=== PATIENT | male | born 1955 | race Caucasian/White ===

== ENCOUNTER 2023-08-08 18:24 | Inpatient (IN) | payer OTHER ==
--- OUTSIDE RECORDS SUMMARY | 2023-08-08 18:28 | XMS REPORT | Continuity of Care Document ---
:1955 Author Organization [facility] t Address [address] [facility] [address] [place] [address] Care Team Providers Name Role Phone Rubens Escobar Primary Care Physician NILESH NELSON Attending Clinician Unavailable MILLIE GREENFIELD Attending Clinician Unavailable Payers Payer Name Policy Type Policy Number Effective Date Expiration Date S nahomi [facility] MEDIC[facility] [id number] 2021 ADVANTAGE 00:00:00 Problems Condition Condition Condition Status Onset Resolution Last Treating Co mments Source Name Details Category Date Date Treatment Clinician Date 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 Social History Social Habit Start Date Stop Date Quantity Comments Source Exposure to SARS-CoV-2 Not sure [facility] (event) Sex Assigned At [birth year] [facility] 00:00:00 00:00:00 Smoking Status Start Date Stop Date Source Tobacco smoking consumption unknown [facility] Medications Ordered Filled Start Stop Current Ordering Indication Dosage Frequency Signature Comments Components Source Medication Medication Date Date Medication? Clinician (SIG) Name Name ketoconazol Yes [id number] Apply to [place] e (NIZOral) 8-19 affected Heal th 2 % cream 00:00: area 2x 00 daily as needed for rash hydrocortis Yes [id number] Q.5D Apply [place] one 2.5 % 8-19 topically Healt h cream 00:00: 2 (two) 00 times a day if needed (Rash). hydrocortis 2020-10- No [id number] Q.5D Apply [place] one 2.5 % 12-02 topically Heal th cream 00:00: 00:00 2 (two) 00 :00 times a day if needed (Rash). ketoconazol 2020-10- No [id number] Apply to [place] e (NIZOral) 12-02 affected Hea lth 2 % cream 00:00: 00:00 area 2x 00 :00 daily for 10 days triamcinolo Yes [id number] Apply on [place] ne 5-12 affected Health (Kenalog) 00:00: area twice 0.1 % 00 a day. ointment Avoid face, groin and axilla. triamcinolo Yes [id number] Apply on [place] ne 5-12 affected Health (Kenalog) 00:00: area twice 0.1 % 00 a day. ointment Avoid face, groin and axilla. Vital Signs Vital Name Observation Time Observation Value Comments Source Systolic blood 2022-08-06 18:28:00 107 mm[Hg] [facility] pressure Diastolic blood 2022-08-06 18:28:00 55 mm[Hg] [facility] pressure Heart rate 2022-08-06 18:28:00 65 /min [facility] Body temperature 2022-08-06 18:28:00 36.44 [place] [facility] Respiratory rate 2022-08-06 18:28:00 16 /min [facility] Body height 2022-08-06 18:28:00 182.9 cm [facility] Body weight 2022-08-06 18:28:00 87.998 kg [facility] BMI 2022-08-06 18:28:00 26.31 kg/m2 [facility] Oxygen saturation in 2022-08-06 18:28:00 97 /min [facility] Arterial blood by Pulse oximetry Procedures Procedure Date / Time Performing Clinician Source Performed HC COMPLETE BLD COUNT 2022-04-24 14:05:00 Michael Crespo [facility]/AUTO DIFF Yonatan IONIZED CALCIUM 2022-04-24 14:05:00 [facility] COMPREHENSIVE METABOLIC 2022-04-24 14:05:00 [facility] PANEL Yonatan ESTIMATED GFR 2022-04-24 14:05:[facility] Yonatan HC COMPLETE BLD COUNT 2021-09-19 15:00:00 [facility] W/AUTO DIFF BASIC METABOLIC PANEL 2021-09-19 15:00:00 [facility] ESTIMATED GFR 2021-09-19 15:00:00 [facility] spital Plan of Care Planned Activity Planned Date Details Comments Source Future Scheduled 2022-08-25 Hepatitis C screening [facility] Test 14:10:34 (procedure) [code = 822956443] Future Scheduled 2022-08-25 COLONOSCOPY SCREENING [facility] Test 14:10:34 [code = COLONOSCOPY SCREENING] Future Scheduled 2022-08-25 SHINGLES VACCINES (1 Met [facility] Test 14:10:34 of 2) [code = SHINGLES VACCINES (1 of 2)] Future Scheduled 2022-08-25 65+ PNEUMOCOCCAL [facility] Test 14:10:34 VACCINE (1 - PCV) [code = 65+ PNEUMOCOCCAL VACCINE (1 - PCV)] Future Scheduled 2022-08-25 COVID-19 VACCINE (4 - [facility] Test 14:10:34 Booster for Pfizer series) [code = COVID-19 VACCINE (4 - Booster for Pfizer series)] Future Scheduled 2022-08-25 INFLUENZA VACCINE [facility] Test 14:10:34 [code = INFLUENZA VACCINE] Future Scheduled 2022-08-25 HEPATITIS B VACCINES [facility] Test 14:10:34 (1 of 3 - 3-dose series) [code = HEPATITIS B VACCINES (1 of 3 - 3-dose series)] Encounters Start End Encounter Admission Attending Care Care Encounter Source Date/Time Date/Time Type Type Clinicians Facility Department ID 2023-07-16 2023-07-16 [facility] [id number] [place] 00:00:00 00:00:00 NILESH 814 Frdei bañuelos 2023-06-12 2023-06-12 Outpatient SILAPUNT, [facility] [id number] [place] 13:00:00 13:00:[address] [facility] 2023-05-22 2023-05-22 Outpatient HARATI, [facility] [id number] [place] 00:00:00 00:00:00 YADOLLAH 266 [address] 2023-03-24 2023-03-24 Outpatient HARATI, [facility] [id number] [place] 00:00:00 00:00:00 YADOLLAH 544 [address] 2023-01-26 2023-01-26 Outpatient HARATI, [facility] [id number] [place] 00:00:00 00:00:00 YADOLLAH 227 Meth[address] di 2022-11-28 2022-11-28 Outpatient HARATI, [facility] [id number] [place] 00:00:00 00:00:00 YADOLLAH 226 Meth[address] 2022-10-06 2022-10-06 Outpatient HARATI, [facility] [id number] [place] 00:00:00 00:00:00 YADOLLAH 391 [address] 2022-08-06 2022-08-06 Hospital [facility], 1.2.840.1 [id number] [place] 00:00:00 00:00:00 Encounter NILESH 59875.1.1 [address] .3.175240 .8 2022-08-06 2022-08-06 Travel 1.2.840.1 1.2.220.419 [id number] Methodi 00:00:00 00:00:[address] 3.430.2.7 0.2.7.3.698 Ho spita .3.100881 084.8 l .8 2022-06-13 2022-06-13 [facility], 1.2.840.1 [id number] 35235 Methodi 12:35:48 23:59:00 Encounter Nilesh 88536.1.1 561 s t 3.430.2.7 Hospit a .3.507650 l .8 2022-06-13 2022-06-13 Travel 1.2.840.1 1.2.810.417 [id number] Methodi 00:00:00 00:00:[address] 3.430.2.7 0.2.7.3.698 Ho spita .3.996256 084.8 l .8 2022-06-06 2022-06-06 Office [facility], [facility] 4 1.2.840.114 [id number] [place] 09:15:00 09:55:39 Visit Millie 350.1.13.58 He alth 9.2.7.2.686 [id number] 1 2022-05-27 2022-05-27 Travel 1.2.840.1 1.2.154.272 8380 [id number] Methodi 00:00:00 00:00:[address] 3.430.2.7 0.2.7.3.698 Ho spita .3.948414 084.8 l .8 2022-04-24 2022-04-24 [facility] 1.2.840.1 [id number] 14179 Methodi 08:54:46 23:59:00 Encounter Nilesh 22830.1.1 978 s t 3.430.2.7 Hospit a .3.444779 l .8 2022-04-24 2022-04-24 Travel 1.2.840.1 1.2.790.512 [id number] [id number] Methodi 00:00:00 00:00:[address] 3.430.2.7 0.2.7.3.698 Ho spita .3.576744 084.8 l .8 2022-04-22 2022-04-22 Travel 1.2.840.1 1.2.156.977 5719 097641 Methodi 00:00:00 00:00:[address] 3.430.2.7 0.2.7.3.698 Ho spita .3.963709 084.8 l .8 2022-02-26 2022-02-26 [facility], 1.2.840.1 [id number] Methodi 13:19:10 23:59:00 Encounter Nilesh 67114.1.1 965 s t 3.430.2.7 Hospit a .3.563138 l .8 2022-02-26 2022-02-26 Travel 1.2.840.1 1.2.160.818 [id number] [id number] Methodi 00:00:00 00:00:[address] 3.430.2.7 0.2.7.3.698 Ho spita .3.391231 084.8 l .8 2022-01-10 2022-01-10 Travel 1.2.840.1 1.2.519.851 8499 [id number] Methodi 00:00:00 00:00:[address] 3.430.2.7 0.2.7.3.698 Ho spita .3.349686 084.8 l .8 2022-01-01 2022-01-01 [facility], 1.2.840.1 [id number] Methodi 13:48:48 23:59:00 Encounter Nilesh 95525.1.1 058 s t 3.430.2.7 Hospit a .3.551278 l .8 2022-01-01 2022-01-01 Travel 1.2.840.1 1.2.158.755 9901 [id number] Methodi 00:00:00 00:00:[address] 3.430.2.7 0.2.7.3.698 Ho spita .3.820374 084.8 l .8 2021-11-13 2021-11-13 [facility], 1.2.840.1 [id number] Methodi 12:57:29 23:59:00 Encounter Nilesh 73544.1.1 735 s t 3.430.2.7 Hospit a .3.224040 l .8 2021-11-13 2021-11-13 Travel 1.2.840.1 1.2.123.237 [id number] [id number] Methodi 00:00:00 00:00:[address] 3.430.2.7 0.2.7.3.698 Ho spita .3.666301 084.8 l .8 2021-09-19 2021-09-19 [facility], 1.2.840.1 [id number] 14266 Methodi 08:00:00 23:59:00 Encounter Nilesh 39691.1.1 179 s t 3.430.2.7 Hospit a .3.075033 l .8 2021-09-19 2021-09-19 Travel 1.2.840.1 1.2.613.558 1556 [id number] Methodi 00:00:00 00:00:[address] 3.430.2.7 0.2.7.3.698 Ho spita .3.734330 084.8 l .8 2021-08-16 2021-08-16 Office [facility] 4 1.2.840.114 11 [id number] [place] 09:45:50 11:32:29 Visit babakgeorge 350.1.13.58 [facility] 9.2.7.2.686 [id number] 1 2021-08-01 2021-08-01 [facility] [id number] [place] 00:00:00 00:00:00 NILESH [address] 2021-06-06 2021-06-06 Outpatient HARATI, [facility] [id number] [place] 00:00:00 00:00:[address] NILESH [address] 2021-04-12 2021-04-12 Outpatient [facility], [facility] [id number] [place] 00:00:00 00:00:[address]AD[address] 2021-02-25 2021-02-25 Outpatient HARATI, [facility] [id number] [place] 00:00:00 00:00:[address] 2021-01-07 2021-01-07 Outpatient HARATI, [facility] [id number] [place] 00:00:00 00:00:[address] NILESH [address] 2020-11-19 2020-11-19 Outpatient HARATI, [facility] [id number] [place] 00:00:00 00:00:[address] NILESH [address] 2020-10-01 2020-10-01 Outpatient HARATI, [facility] [id number] [place] 00:00:00 00:00:[address] 2020-08-06 2020-08-06 Outpatient HARATI, [facility] [id number] [place] 00:00:00 00:00:00 NILESH 765 [address] 2020-06-11 2020-06-11 Outpatient HARATI, [facility] [id number] [place] 00:00:00 00:00:00 NILESH [address] 2020-04-24 2020-04-24 Outpatient HARATI, [facility] [id number] [place] 00:00:00 00:00:00 NILESH [address] 2020-04-19 2020-04-19 Outpatient HARATI, [facility] [id number] [place] 00:00:00 00:00:00 NILESH [address] 2020-03-01 2020-03-01 Outpatient HARATI, [facility] [id number] [place] 00:00:00 00:00:00 NILESH [address] 2020-01-09 2020-01-09 Outpatient HARATI, [facility] [id number] [place] 00:00:00 00:00:[address] NILESH [address] 2019-11-17 2019-11-17 Outpatient HARATI, [facility] [id number] [place] 00:00:00 00:00:00 NILESH [address] 2019-09-23 2019-09-23 Outpatient HARATI, [facility] [id number] [place] 00:00:00 00:00:00 NILESH [address] 2019-08-05 2019-08-05 Outpatient OMAR [facility] [id number] [place] 00:00:00 00:00:00 NILESH [address] Results This patient has no known results.
[2023-08-08 19:06] LABS: Specific Gravity 1.018 (1.005-1.030); Urine Bacteria <20 /HPF (<20); Urine Bilirubin NEGATIVE (Negative); Urine Blood Trace (Negative); Urine Clarity Turbid (Clear); Urine Color Light-Yellow (Yellow); Urine Glucose NEGATIVE (Negative); Urine Mucus Slight /HPF (None Seen); Urine Protein TRACE (Negative); Urine Urobilinogen Normal (Normal); Urine WBC Clump Rare /HPF (None Seen)
[2023-08-08 19:07] LABS: Absolute Lymphocytes (CBC) 0.5 K/uL (0.7-4.9); Hematocrit 37.9 % (39.6-49.0); Lymphocytes % 3.9 % (15.3-44.8); MCV 91.7 fL (80-100); MPV 6.9 fL (7.6-11.3); Platelets 238 thou/uL (152-406); RBC Red Blood Cell Count 4.14 M/uL (4.33-5.43)
[2023-08-08 19:14] LABS: Protime INR 1.08
[2023-08-08 19:24] LABS: Albumin 4.1 g/dL (3.4-5.0); Bilirubin Total 1.1 mg/dL (0.2-1.0); Potassium 3.4 mEq/L (3.5-5.1); Protein, Total 7.3 g/dL (6.4-8.2)
[2023-08-08] MEDS ORDERED: ACETAMINOPHEN 325 MG TABLET ONE (19:25)
[2023-08-08] MEDS ORDERED: HYDROCODONE/APAP 7.5/325 MG TAB ONE (19:25)
[2023-08-08] MEDS ORDERED: NA CHLORIDE 0.9% 1,000 ML ONE (19:26)
[2023-08-08 19:31] LABS: Blood Morphology Comment NOT SEEN (NOT SEEN); Platelet Estimate ADEQ; White Blood Cell Scan OK (OK)
[2023-08-08] MEDS ORDERED: CEFTRIAXONE 1000 MG/VIAL ONE (19:36)
--- NOTE | 2023-08-08 21:08 | ER ---
Nurse's Notes [facility] Name: Stephon Silva Age: 68 yrs Sex: Male : 1955 Arrival Date: 08/08/2023 Time: 18:24 Bed 6 Private MD: Rubens Escobar Diagnosis: UTI/ Urinary tract infection, site not specified;Vomiting Presentation: 08/08 18:37 Chief complaint: Burning with urination and suprapubic pain x 2 days, nausea and hb vomiting this afternoon. Coronavirus screen: At this time, the client does not indicate any symptoms associated with coronavirus-19. Ebola Screen: No symptoms or risks identified at this time. Risk Assessment: Do you want to hurt yourself or someone else? Patient reports no desire to harm self or others. Onset of symptoms was August 06, 2023. 18:37 Method Of Arrival: Ambulatory hb 18:37 Acuity: EVELYN 3 hb 19:00 Initial Sepsis Screen: Does the patient meet any 2 criteria? Temp <36.0*C (96.8*F)) or bp > 38.3*C (100.9*F). No. Patient's initial sepsis screen is negative. Does the patient have a suspected source of infection? Yes: Dysuria/Frequency/Urgency/UTI. Historical: - Allergies: 18:38 No Known Allergies; hb - Home Meds: 18:38 Bystolic oral [Active]; Benicar oral [Active]; hb - PMHx: 18:39 Hypertension; CIDP; Plasmaphoresis q 7 weeks; hb - PSHx: 18:38 None; hb - Immunization history:: Adult Immunizations up to date. - Social history:: Smoking status: Patient denies any tobacco usage or history of. Patient/guardian denies using alcohol. Screenin:40 [facility] ED Fall Risk Assessment (Adult) History of falling in the last 3 months, ld1 including since admission No falls in past 3 months (0 pts). Abuse screen: Denies threats or abuse. Denies injuries from another. Nutritional screening: No deficits noted. Tuberculosis screening: No symptoms or risk factors identified. Assessment: 18:40 General: Appears in no apparent distress. comfortable, Behavior is calm, cooperative, ld1 appropriate for age. Pain: Denies pain. Neuro: Level of Consciousness is awake, alert, obeys commands, Oriented to person, place, time, situation. Cardiovascular: Capillary refill < 3 seconds Patient's skin is warm and dry. Respiratory: Airway is patent Respiratory effort is even, unlabored. GI: Abdomen is flat, non-distended. : Reports burning with urination. EENT: No signs and/or symptoms were reported regarding the EENT system. Derm: No signs and/or symptoms reported regarding the dermatologic system. Musculoskeletal: No signs and/or symptoms reported regarding the musculoskeletal system. 20:22 Reassessment: No changes from previously documented assessment. Patient is alert, bp oriented x 3, equal unlabored respirations, skin warm/dry/pink. 21:25 Neuro: No deficits noted. Cardiovascular: No deficits noted. Respiratory: No deficits la4 noted. GI: Abdomen is flat, non-distended, Pt is actively vomiting undigested food, Bowel sounds present X 4 quads. Abd is soft and non tender X 4 quads. Reports nausea. 21:25 : No deficits noted. la4 21:28 General: Pt began to have emesis after crackers. ROBER Wall notified that patient is la4 willing to stay one night. Nausea medication ordered and patient to be admitted. Pt changed in to hospital gown w/ non-slip socks, medication administered, bed linens changed and pt placed on monitor. Ambulates w/ steady gait. Denies dizziness or abdominal pain at this time. Will continue to monitor.. 21:38 Cardiovascular: Rhythm is sinus rhythm with unifocal PVCs. la4 23:00 Reassessment: ADMIT COMPLETED. bp Vital Signs: 18:37 BP 152 / 77; Pulse 87; Resp 16; Temp 101.3(O); Pulse Ox 96% on R/A; Weight 88.45 kg; hb Height 6 ft. 0 in. ; Pain 3/10; 20:22 BP 128 / 73; Pulse 77; Resp 16; Pulse Ox 97% ; bp 21:39 BP 115 / 71; Pulse 77; Resp 20; Pulse Ox 97% on R/A; Pain 0/10; la4 23:01 BP 124 / 73; Pulse 68; Resp 16; Pulse Ox 97% ; bp 18:37 Body Mass Index 26.45 (88.45 kg, 182.88 cm) hb 18:37 Pain Scale: Adult hb 21:39 Pain Scale: Adult la4 Vitals: 21:39 Cardiac Rhythm Assessment Regular Sinus rhythm W/unifocal PVC's. la4 [place] Coma Score: 21:39 Eye Response: spontaneous(4). Motor Response: obeys commands(6). Verbal Response: la4 oriented(5). Total: 15. ED Course: 18:27 Patient arrived in ED. mr 18:27 Rubens Escobar MD is Private Physician. mr 18:31 Kimber[facility] Fern[facility]C [facility]. snw 18:31 Moises Lagunas MD is Attending Physician. snw 18:38 Triage completed. hb 18:39 Arm band placed on. hb 18:40 Patient has correct armband on for positive identification. Placed in gown. Bed in low ld1 position. Call light in reach. Side rails up X2. residential monitor on. Pulse ox on. NIBP on. Door closed. Noise minimized. Warm blanket given. 18:40 No provider procedures requiring assistance completed. ld1 18:41 Jennifer Portillo, RN is Primary Nurse. ld1 19:00 Lactate w/ 2H reflex if indic. Sent. ld1 19:00 Inserted saline lock: 20 gauge in right antecubital area, using aseptic technique. bp Blood collected. 19:01 Blood Culture Adult (2) Sent. ld1 19:01 CBC with Diff Sent. ld1 19:01 CMP Sent. ld1 19:01 Protime (+inr) Sent. ld1 19:01 Ptt, Activated Sent. ld1 19:01 UAM Sent. ld1 19:05 Primary Nurse role handed off by Jennifer Portillo, KERI bp 19:05 Conrad Castillo, KERI is Primary Nurse. bp 19:53 Chest Single View XRAY In Process Unspecified. EDMS 21:07 Rubens Escobar MD is Referral Physician. snw 21:18 Rubens Escobar MD is Hospitalizing Provider. snw 23:00 Patient admitted, IV remains in place. bp 23:01 Provided Education on: N/A. bp Administered Medications: 19:19 Drug: NS 0.9% IV (30 ml/kg) 30 ml/kg IV at bolus once; Sepsis Protocol Route: IV; Rate: bp bolus; Site: right antecubital; 23:02 Follow up: IV Status: Completed infusion; IV Intake: 2500ml bp 19:19 Drug: Hydrocodone-Acetaminophen PO (7.5 mg-325 mg) 1 tabs PO once Route: PO; bp 23:02 Follow up: Response: No adverse reaction bp 19:19 Drug: Acetaminophen PO 650 mg PO once Route: PO; bp 23:02 Follow up: Response: No adverse reaction bp 19:35 Drug: Rocephin IV 1 grams IV at calculated rate once; Given slow IV push per pharmacy bp instructions Route: IV; Rate: calculated rate; Site: right antecubital; 23:02 Follow up: IV Status: Completed infusion; IV Intake: 100ml bp 21:27 Drug: Promethazine IVP 12.5 mg IVP once Route: IVP; Rate: bolus; Infused Over: 4 mins; la4 Site: right antecubital; 23:02 Follow up: Response: No adverse reaction bp Medication: 18:40 VIS not applicable for this client. ld1 Intake: 23:02 IV: 100ml; Total: 100ml. bp 23:02 IV: 2500ml; Total: 2600ml. bp Outcome: 21:07 Discharge ordered by . snw 21:19 Decision to Hospitalize by Provider. snw 23:00 Admitted to Med/surg accompanied by tech, via wheelchair, room 408, with chart, Report bp called to LYNN SAAVEDRA 23:00 Condition: stable 23:00 Instructed on the need for admit, 23:37 Patient left the ED. bp Signatures: Dispatcher [employer] EDMS Kimberly Fernandez, GROUNDS SUPERVISOR-C GROUNDS SUPERVISOR-Csnw Stormy Burrows, Reg Reg mr Trisha Beltran, RN RN hb Conrad Castillo RN RN bp Jennifer Portillo RN RN ld1 Sandra Crow, RN RN la4 Corrections: (The following items were deleted from the chart) 18:40 18:38 Home Meds: CIDP - plasmaphoreis q 7 weeks; hb hb
--- NOTE | 2023-08-08 21:08 | EDPHYS ---
Physician Documentation [facility] Name: Stephon Silva Age: 68 yrs Sex: Male : 1955 Arrival Date: 08/08/2023 Time: 18:24 Bed 6 Private MD: Rubens Escobar ED Physician Moises Lagunas HPI: 08/08 19:39 This 68 yrs old Male presents to ER via Ambulatory with complaints of Urinary Problem, snw Vomiting. 19:39 Onset: The symptoms/episode began/occurred pt states he has had some dysuria x 2-3 snw days, began hurting to bilateral abd over kidneys, felt poor today while golfing so went home. Vomited x 2-3 episodes. + hx of kidney stones but this does not feel stone like. On arrival to ED pt had temp of 101.3. The patient has not recently seen a physician. Historical: - Allergies: 18:38 No Known Allergies; hb - Home Meds: 18:38 Bystolic oral [Active]; Benicar oral [Active]; hb - PMHx: 18:39 Hypertension; CIDP; Plasmaphoresis q 7 weeks; hb - PSHx: 18:38 None; hb - Immunization history:: Adult Immunizations up to date. - Social history:: Smoking status: Patient denies any tobacco usage or history of. Patient/guardian denies using alcohol. ROS: 19:37 Eyes: Negative for injury, pain, redness, and discharge, ENT: Negative for injury, snw pain, and discharge, Neck: Negative for injury, pain, and swelling, Cardiovascular: Negative for chest pain, palpitations, and edema, Respiratory: Negative for shortness of breath, cough, wheezing, and pleuritic chest pain, 19:37 Back: Negative for injury and pain, MS/Extremity: Negative for injury and deformity, Skin: Negative for injury, rash, and discoloration, Neuro: Negative for headache, weakness, numbness, tingling, and seizure, Psych: Negative for depression, anxiety, suicide ideation, homicidal ideation, and hallucinations, 19:37 Constitutional: Positive for body aches, fever, malaise, poor PO intake, 19:37 Abdomen/GI: Positive for abdominal pain, nausea and vomiting, of the right lower quadrant and left lower quadrant, 19:37 : Positive for urinary symptoms, burning with urination, Exam: 19:37 Head/Face: Normocephalic, atraumatic. Eyes: Pupils equal round and reactive to light, snw extra-ocular motions intact. Lids and lashes normal. Conjunctiva and sclera are non-icteric and not injected. Cornea within normal limits. Periorbital areas with no swelling, redness, or edema. ENT: Nares patent. No nasal discharge, no septal abnormalities noted. Tympanic membranes are normal and external auditory canals are clear. Oropharynx with no redness, swelling, or masses, exudates, or evidence of obstruction, uvula midline. Mucous membranes moist. Neck: Trachea midline, no thyromegaly or masses palpated, and no cervical lymphadenopathy. Supple, full range of motion without nuchal rigidity, or vertebral point tenderness. No Meningismus. Chest/axilla: Normal chest wall appearance and motion. Nontender with no deformity. No lesions are appreciated. Cardiovascular: Regular rate and rhythm with a normal S1 and S2. No gallops, murmurs, or rubs. Normal PMI, no JVD. No pulse deficits. Respiratory: Lungs have equal breath sounds bilaterally, clear to auscultation and percussion. No rales, rhonchi or wheezes noted. No increased work of breathing, no retractions or nasal flaring. 19:37 Back: No spinal tenderness. No costovertebral tenderness. Full range of motion. Skin: Warm, dry with normal turgor. Normal color with no rashes, no lesions, and no evidence of cellulitis. MS/ Extremity: Pulses equal, no cyanosis. Neurovascular intact. Full, normal range of motion. Neuro: Awake and alert, GCS 15, oriented to person, place, time, and situation. Cranial nerves II-XII grossly intact. Motor strength 5/5 in all extremities. Sensory grossly intact. Cerebellar exam normal. Normal gait. Psych: Awake, alert, with orientation to person, place and time. Behavior, mood, and affect are within normal limits. 19:37 Constitutional: The patient appears alert, awake, febrile, uncomfortable, 19:37 Abdomen/GI: Inspection: abdomen appears normal, Bowel sounds: normal, Palpation: moderate abdominal tenderness, in the right lower quadrant and left lower quadrant, Vital Signs: 18:37 BP 152 / 77; Pulse 87; Resp 16; Temp 101.3(O); Pulse Ox 96% on R/A; Weight 88.45 kg; hb Height 6 ft. 0 in. ; Pain 3/10; 20:22 BP 128 / 73; Pulse 77; Resp 16; Pulse Ox 97% ; bp 21:39 BP 115 / 71; Pulse 77; Resp 20; Pulse Ox 97% on R/A; Pain 0/10; la4 23:01 BP 124 / 73; Pulse 68; Resp 16; Pulse Ox 97% ; bp 18:37 Body Mass Index 26.45 (88.45 kg, 182.88 cm) hb 18:37 Pain Scale: Adult hb 21:39 Pain Scale: Adult la4 [place] Coma Score: 21:39 Eye Response: spontaneous(4). Motor Response: obeys commands(6). Verbal Response: la4 oriented(5). Total: 15. MDM: 18:48 Patient medically screened. snw 19:20 Counseling: I had a detailed discussion with the patient and/or guardian regarding the snw historical points, exam findings, and any diagnostic results supporting the discharge/admit diagnosis, lab results. ED course: Sepsis for temperature, WBC elevation, Source (Urine) . 20:51 Differential diagnosis: viral Infection, bacterial infection. Data reviewed: vital snw signs, nurses notes, lab test result(s). I considered the following discharge prescriptions or medication management in the emergency department Medications were administered in the Emergency Department. See MAR. Post IV fluid administration reassessment for Sepsis: Client prescribed 30 mL/kg IVF. Heart: Regular rate/rhythm noted. Lungs: Noted to be clear bilaterally. Neuro: Neurological examination improved from previous exam. Cardio: Cardiovascular examination improved from previous exam. Heart rate and blood pressure have improved. Other: Pt temp down to 98.6, eating crackers. If + po without vomiting, pt would like to go home on oral antibiotics. Response to treatment: the patient's symptoms have markedly improved after treatment. Awaiting: po challenge. Refusal of service: The patient/guardian displays adequate decision making capability and despite a detailed discussion of alternatives, benefits, risks, and consequences refuses: Admission to the hospital for further work-up and treatment. 21:00 ED course: Pt failed po challenge, vomited crackers. Accepts admission. Will contact snw Dr. Escobar . 21:17 Historians other than the Patient: Spouse/Significant Other: Spouse. snw 08/08 18:31 Order name: UAM; Complete Time: 19:19 snw 08/08 18:49 Order name: Blood Culture Adult (2) snw 08/08 18:49 Order name: CBC with Diff; Complete Time: 19:31 snw 08/08 18:49 Order name: CMP; Complete Time: 19:24 snw 08/08 18:49 Order name: Lactate w/ 2H reflex if indic.; Complete Time: 19:25 snw 08/08 18:49 Order name: Protime (+inr); Complete Time: 19:19 snw 08/08 18:49 Order name: Ptt, Activated; Complete Time: 19:19 snw 08/08 19:10 Order name: Urine Culture EDMS 08/08 19:15 Order name: CBC Smear Scan; Complete Time: 19:31 EDMS 08/08 22:21 Order name: Basic Metabolic Panel EDMS 08/08 22:21 Order name: CBC with Automated Diff EDMS 08/08 22:21 Order name: Comprehensive Metabolic Panel EDMS 08/08 22:21 Order name: Magnesium EDMS 08/08 22:21 Order name: Phosphorus EDMS 08/08 18:49 Order name: Chest Single View XRAY; Complete Time: 21:25 snw 08/08 18:49 Order name: EKG; Complete Time: 18:50 snw 08/08 18:49 Order name: Accucheck; Complete Time: 19:00 snw 08/08 18:49 Order name: Cardiac monitoring; Complete Time: 19:08 snw 08/08 18:49 Order name: EKG - Nurse/Tech; Complete Time: 19:19 snw 08/08 18:49 Order name: IV Saline Lock - Large Bore; Complete Time: 19:00 snw 08/08 18:49 Order name: Labs collected and sent; Complete Time: 19:00 snw 08/08 18:49 Order name: O2 Per Protocol; Complete Time: 19:00 snw 08/08 18:49 Order name: O2 Sat Monitoring; Complete Time: 19:00 snw 08/08 18:49 Order name: Vital Signs; Complete Time: 19:00 snw EC:15 Rate is 83 beats/min. Rhythm is irregular. QRS [place] is Normal. CT interval is normal. snw QRS interval is normal. QT interval is normal. T waves are Flattened in leads aVL, V1. Clinical impression: NSR w/ Non-specific ST/T Changes. Administered Medications: 19:19 Drug: NS 0.9% IV (30 ml/kg) 30 ml/kg IV at bolus once; Sepsis Protocol Route: IV; Rate: bp bolus; Site: right antecubital; 23:02 Follow up: IV Status: Completed infusion; IV Intake: 2500ml bp 19:19 Drug: Hydrocodone-Acetaminophen PO (7.5 mg-325 mg) 1 tabs PO once Route: PO; bp 23:02 Follow up: Response: No adverse reaction bp 19:19 Drug: Acetaminophen PO 650 mg PO once Route: PO; bp 23:02 Follow up: Response: No adverse reaction bp 19:35 Drug: Rocephin IV 1 grams IV at calculated rate once; Given slow IV push per pharmacy bp instructions Route: IV; Rate: calculated rate; Site: right antecubital; 23:02 Follow up: IV Status: Completed infusion; IV Intake: 100ml bp 21:27 Drug: Promethazine IVP 12.5 mg IVP once Route: IVP; Rate: bolus; Infused Over: 4 mins; la4 Site: right antecubital; 23:02 Follow up: Response: No adverse reaction bp Disposition Summary: 08/08/23 21:19 Hospitalization Ordered Notes: Hospitalization Status: Inpatient Admission snw Provider: Rubens Escobar Location: Telemetry/MedSurg (Inpatient)(08/08/23 21:19) snw Condition: Stable(08/08/23 21:19) snw Problem: new snw Symptoms: are unchanged snw Bed/Room Type: Standard snw Room Assignment: 408(08/08/23 22:33) mw Diagnosis - UTI/ Urinary tract infection, site not specified(08/08/23 21:19) snw - Vomiting snw Forms: - Medication Reconciliation Form snw - SBAR form snw - Leadership Thank You Letter snw Signatures: Dispatcher [employer] EDMS Gisselle Poole RN RN mw Waters, Shelly, CHRISTINA [employer] WORKER-Csnw Trisha Beltran RN RN hb Peltier, Brian, RN RN bp Jennifer Portillo RN RN ld1 Sandra Crow RN RN la4 Corrections: (The following items were deleted from the chart) 18:40 18:38 Home Meds: CIDP - plasmaphoreis q 7 weeks; hb hb 19:00 18:49 Urinalysis+U.LAB.BRZ ordered. EDMS EDMS 21:10 21:07 Home snw snw 21:10 21:07 Stable snw snw 21:10 21:07 UTI/ Urinary tract infection, site not specified snw snw 22:33 21:19 snw mw
--- NOTE | 2023-08-08 21:24 | RAD REPORT ---
EXAM DESCRIPTION: Andreiat Single View08/08/2023 7:51 pm CLINICAL HISTORY: FEVER COMPARISON: CHEST PA AND LAT 2 VIEW dated 07/18/2012 TECHNIQUE: Portable AP view of the chest. FINDINGS: The lungs are clear. No pneumothorax or effusion. The cardiomediastinal contours are unre markable. IMPRESSION: No acute cardiopulmonary process.
[2023-08-08] MEDS ORDERED: PROMETHAZINE INJ 25 MG/ML AMP ONE (21:27)
[2023-08-08] MEDS: NA CHLORIDE 0.9% 1,000 ML IV SCH (23:00)
[2023-08-09 02:45] LABS: Absolute Lymphocytes (CBC) 0.6 K/uL (0.7-4.9); Hematocrit 37.4 % (39.6-49.0); Lymphocytes % 4.9 % (15.3-44.8); MCV 93.4 fL (80-100); MPV 7.2 fL (7.6-11.3); Platelets 200 thou/uL (152-406)
[2023-08-09] MEDS ORDERED: PROMETHAZINE 25 MG TABLET PO PRN (03:00)
[2023-08-09 03:14] LABS: Albumin 3.6 g/dL (3.4-5.0); Bilirubin Total 0.9 mg/dL (0.2-1.0); Magnesium 2.3 mg/dL (1.6-2.4); Phosphorus 3.4 mg/dL (2.5-4.9); Potassium 4.3 mEq/L (3.5-5.1); Protein, Total 6.8 g/dL (6.4-8.2)
[2023-08-09] MEDS ORDERED: ENOXAPARIN 40 MG/0.4 ML SQ SCH (09:00)
[2023-08-09] MEDS ORDERED: CEFTRIAXONE 1,000 MG in NA CHLORIDE 0.9% 50 ML IVPB SCH (09:00)
[2023-08-09] MEDS: NA CHLORIDE 0.9% 1,000 ML IV SCH ×2 (09:26→20:44)
[2023-08-09] MEDS: ACETAMINOPHEN 325 MG TABLET PO PRN ×3 (09:26→20:37)
[2023-08-09] MEDS: CEFTRIAXONE 1,000 MG in NA CHLORIDE 0.9% 50 ML IVPB SCH ×2 (09:26→20:38)
[2023-08-09] MEDS: ENOXAPARIN 40 MG/0.4 ML SQ SCH (09:26)
--- NOTE | 2023-08-09 13:17 | RAD REPORT ---
EXAM DESCRIPTION: CTAbdomen Pelvis Wo Contrast - 08/09/2023 12:58 pm CLINICAL HISTORY: pyelonephritis, rule out kidney stone COMPARISON: No comparisons TECHNIQUE: CT of the abdomen and pelvis was performed. All CT scans are performed using dose optimization technique as appropriate and may include automated exposure control or mA/KV adjustment according to patient size. FINDINGS: Lower chest: Right main coronary artery calcifications. Circumferential thickened distal e sophagus with small hiatal hernia. Liver: Hepatic steatosis Biliary: No biliary ductal dilatation. Stomach: No significant focal abnormality. Duodenum: No significant focal abnormality. Pancreas: No significant abnormality. Spleen: No significant abnormality. Adrenal: No suspicious lesions. Kidney/ureter: No hydronephrosis. No renal calculi. Mild nonspecific perinephric stranding. Periuret paul stranding is noted bilaterally. Retroperitoneum: No retroperitoneal adenopathy. Vascular: No aneurysm. Bowel: Diverticulosis without diverticulitis. Moderate stool in the colon. Normal appendix. Peritoneum: Mild pelvic free fluid. Bladder: Circumferential thickening of the bladder. Reproductive: No adnexal masses. Bones: No acute fracture. Moderate disc height loss at L5-S1. Other: n/a IMPRESSION: Circumferential bladder wall thickening could indicate cystitis. Mild periureteric stran ding could be secondary to an ascending urinary tract infection. No hydronephrosis or urinary tract c alculi.
--- NOTE | 2023-08-09 13:51 | EKG ---
Test Date: 2023-08-08 Test Time: 19:12:43 Chick Grader: BP MEASUREMENT RESULTS: Intervals: Rate: 83 NM: 198 QRSD: 90 QT: 366 QTc: 430 Viking: P: 57 NM: 198 QRS: -3 T: 47 INTERPRETIVE STATEMENTS: Sinus rhythm with premature atrial complexes Possible Anterior infarct, age undetermined Abnormal ECG Compared to ECG 07/05/2003 22:56:00 Atrial premature complex(es) now present Myocardial infarct finding now present Electronically Signed On 08-09-23 13:49:47 CDT by Jett Miguel
[2023-08-09] MEDS: NEBIVOLOL HCL 5 MG TAB PO SCH (13:58)
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
[2023-08-09] MEDS: HYDROCHLOROTHIAZIDE PO SCH (20:56)
[2023-08-09] MEDS: OLMESARTAN PO SCH (20:56)
[2023-08-10] MEDS: ACETAMINOPHEN 325 MG TABLET PO PRN ×2 (04:47→16:53)
[2023-08-10] MEDS: NA CHLORIDE 0.9% 1,000 ML IV SCH ×2 (04:47→07:21)
[2023-08-10 06:38] LABS: Hematocrit 33.1 % (39.6-49.0); Lymphocytes % 12.4 % (15.3-44.8); MCV 92.7 fL (80-100); MPV 6.9 fL (7.6-11.3); Platelets 145 thou/uL (152-406); RBC Red Blood Cell Count 3.57 M/uL (4.33-5.43)
[2023-08-10 06:52] LABS: Magnesium 2.4 mg/dL (1.6-2.4)
[2023-08-10 06:55] LABS: Phosphorus 1.2 mg/dL (2.5-4.9)
[2023-08-10] MEDS: ENOXAPARIN 40 MG/0.4 ML SQ SCH (09:00)
[2023-08-10] MEDS: NEBIVOLOL HCL 5 MG TAB PO SCH (09:05)
[2023-08-10] MEDS: CIPROFLOXACIN 400mg IV 400 MG/200 ML BAG IV SCH ×2 (09:05→21:08)
[2023-08-10] MEDS: CEFTRIAXONE 1,000 MG in NA CHLORIDE 0.9% 50 ML IVPB SCH ×2 (09:05→20:21)
[2023-08-10] MEDS: POTASS/SODIUM PHOSPHATE 1 PKT POWD.PACK PO SCH ×2 (09:06→11:24)
[2023-08-10] MEDS: HYDROCHLOROTHIAZIDE PO SCH (20:21)
[2023-08-10] MEDS: OLMESARTAN PO SCH (20:21)
--- NOTE | 2023-08-11 00:09 | PN ---
Date of Progress Note: 08/10/2023 Subjective: The patient was seen this morning for followup. He was lying in bed, not in distress. Denies any new complaints. No chest pain, shortness of breath. No nausea or vomiting. Vital signs reviewed. The patient still continues to have intermittent fever. Objective: Vital Signs: Last vital signs this morning temperature 100.5, pulse 73, respiratory rate 16, blood pressure 134/78. HEENT: Unremarkable. Lungs: Clear to auscultation. Heart: Sounds normal. Abdomen: Soft. Bowel sounds normal. No guarding, rigidity, tenderness, distention. Extremities: No leg edema. Laboratory Data: White count 8.1, hemoglobin 11.7, platelets 145. Sodium 138, potassium 4, chloride 108, bicarb 27, BUN 11, creatinine 1.12, glucose 127, phosphorus low at 1.2, magnesium normal at 2.4 . Blood culture negative. Urine culture pending. Impression: 1.Acute pyelonephritis. 2.Acute kidney injury. 3.Hypophosphatemia. Plan: Replace phosphorus per electrolyte replacement protocol. Continue IV fluid, but reduce rate t o 50 cc/hour. Continue ceftriaxone and add Cipro. Follow up on urine culture results and once the f inal report is available, plan is to discharge him to go home with appropriate culture, specific anti biotics and that may happen as early as tomorrow. Ambulation was encouraged. Continue Lovenox for DVT prophylaxis. WOO/MODL Voice ID: [id number] Report ID: [id number]
[2023-08-11] MEDS: ACETAMINOPHEN 325 MG TABLET PO PRN (01:10)
[2023-08-11] MEDS: NA CHLORIDE 0.9% 1,000 ML IV SCH (04:28)
[2023-08-11] MEDS ORDERED: CIPROFLOXACIN HCL 500 MG TAB PO ONE (08:00)
[2023-08-11] MEDS: ENOXAPARIN 40 MG/0.4 ML SQ SCH (09:00)
[2023-08-11] MEDS: NEBIVOLOL HCL 5 MG TAB PO SCH (09:06)
[2023-08-13 13:00] VITALS: BP 140/83; TEMP 97.6; O2SAT 97; BMI 26.4
== END 2023-08-11 09:56 | disposition home or self-care (01) | DRG 690 ==
LOC: ER 18:24 → 4TH 23:11
PROVIDERS: ADMIT Internal Medicine; ATTEND Internal Medicine
DX: N10 Acute pyelonephritis (principal); G61.81 Chronic inflammatory demyelinating polyneuritis; N17.9 Acute kidney failure, unspecified; I10 Essential (primary) hypertension; E78.2 Mixed hyperlipidemia; E87.6 Hypokalemia; E83.39 Other disorders of phosphorus metabolism; N40.0 Benign prostatic hyperplasia without lower urinary tract symptoms; R73.01 Impaired fasting glucose; Z79.899 Other long term (current) drug therapy
CPT/HCPCS: 36415; 71045; 74176; 80048; 80053; 81001; 83605; 83735; 84100; 85025; 85610; 85730; 87040; 87077; 87086; 87088; 87186; 93005; 94760; 96365; 96366; 96375; 99285; J0696; J0744; J1650; J2550; J7030